=== PATIENT | female | born 1955 | race Caucasian/White ===

== ENCOUNTER → 2024-08-21 | Outpatient (CLI) | payer MEDICARE, OTHER ==
--- NOTE | 2024-08-21 12:13 | CTL ---
EXAMINATION TYPE: CT Low Dose Lung DATE OF EXAM ORDERED: 08/21/2024 COMPARISON: CLINICAL INDICATION: Female, 68 years old with history of Z12.2 ENCNTR SCREEN FOR MALIGNANT NEOPLASM OF RESP; PHH, personal tobacco use, Lung cancer screening, History of Smoking/tobacco use. TECHNIQUE: Low dose computed tomography scan was performed through the chest at 1 mm thick sections a nd reconstructed images in multiple planes at 1 mm and [address] DLP: 127.[address] CTDI: 3.4 mGy Automated exposure control for dose reduction was used. CT DIAGNOSTIC QUALITY: Satisfactory FINDINGS: There are 2 micronodules in the left lung. There is no suspicious lung mass or nodule. There is no airspace consolidation. There is no abnormal interstitial density. There is no pleural effusion or pneumothorax. The great vessels chest are normal and is no mediastinal, hilar or axillary adenopathy. Limited scanning through the upper abdomen reveals no gross abnormality. No focal osseous lesions are seen. IMPRESSION: 1. Lung RADS category 2 benign. Continue routine screening intervals. 2. No acute cardiopulmonary disease. [facility], , 08/21/2024 12:11 PM
== END | disposition home or self-care (01) ==
LOC: RADCTMAIN 10:49
PROVIDERS: ATTEND Family Medicine
DX: Z12.2 Encounter for screening for malignant neoplasm of respiratory organs (principal); F17.210 Nicotine dependence, cigarettes, uncomplicated
CPT/HCPCS: 71271